=== PATIENT | male | born 1970 | race Caucasian/White ===

== ENCOUNTER 2020-04-23 09:45 | Outpatient (RCR) | payer OTHER, SELFPAY ==
[2020-02-01 14:11] VITALS: BP_SYST 90
--- NOTE | 2020-02-01 15:11 | PTOPEVAL ---
PHYSICAL THERAPY EVALUATION AND PLAN OF CARE 02-01-2020 The PT evaluation was completed for the diagnosis of L shoulder pain. His plan of treatment is 1-2x/week for 5 weeks. He requested 1-2x/week due to transportation issues and other appointments. Thank you for referring Alexander Elizabeth to [facility]. Please review, sign, date and return this plan of care [facility]. I agree with and certify that the following plan of care is medically necessary. Referring Physician Date Attending Provider: Dr. Yen *PT Outpatient Evaluation Start: 02/01/20 14:10 Freq: Status: Active Protocol: Document 02/01/20 14:11 SEVERIANO (Rec: 02/01/20 15:07 SEVERIANO [id number]) Therapy Assessment Status Assessment Status Assessment Status Evaluation Outpatient Past Medical History Past Medical History Source of Past Medical History Patient Neurological History Hx Neurological Disorders No Significant History Cardiovascular History Hx Cardiac Disorders No Significant History Respiratory History Hx Respiratory Disorders No Significant History Gastrointestinal History Hx Gastroesophageal Reflux Disease Yes Genitourinary History Hx Genitourinary Disorders No Significant History Musculoskeletal History Hx Back Pain Yes: chronic neck and low back pain Hx Other Musculoskeletal Disorders Yes: rheumatology-shoulders, elbows,wrists,low back,neck, hips Hematological History Hx Hematological Disorders No Significant History Endocrine History Hx Endocrine Disorders No Significant History HEENT History Hx HEENT Disorders No Significant History Evaluation Information Problem Diagnosis myalgia, pain shoulder and back Onset Aug 2019 Additional Evaluation Detail order states: JONNY positive, OA , vit D deficiency, CCP antibody positive; pt at this time, most pain in L shoulder; Subjective Information gradual increase in pain; Query Text:As Reported By Patient/ have had chronic pain in Family shoulders; saw pain management dr yesterday for L shoulder pain follow up next week- ? injections; also reports pain ineck, R shoulder, back and hips; fingers cold easily and drop things due to fingers banged up so much from work Diagnostic Tests X-Rays For This Problem Yes: pt reports torn ligaments of shoulders Previous Treatments Prev
--- NOTE | 2020-03-03 10:47 | PTOPEVAL ---
PHYSICAL THERAPY RE- EVALUATION AND UPDATED PLAN OF CARE 03-03-2020 Sudarshan has received 7 PT sessions, from January 31 to today, for the diagnosis of L shoulder pain. Compared to the initial evaluation: Pain rating is about the same; elbow pain is less; Reported sleeping tolerance has improved; continues to have pain with putting on his shirt and home activities are about the same level of pain; Self assessment score has improved by 27%; Active ROM of L shoulder-- all ranges have increased; IR continues to be the most pain for him. He has been issued a home exercise program and is receiving short term pain relief with the heat and electrical stim. PT is to continue 2x/week for 3 weeks. Thank you for referring Alexander Elizabeth to [facility]. Please review, sign, date and return this plan of care [facility]. I agree with and certify that the following plan of care is medically necessary. Referring Physician Date Attending Provider: Dr. Yen *PT Outpatient Re-Evaluation Document 03/03/20 10:09 SEVERIANO (Rec: 03/03/20 10:45 SEVERIANO [id number]) Subjective Information Sudarshan reports: pain has not Query Text:As Reported By Patient/ changed, but does have more Family motion in L shoulder; heat and electrical stim help pain; Quick DASH self assessment score: 43% limitation. Pain Assessment Timing of Pain Assessment Timing of Pain Assessment Assessment Pain Scale Pain Scale Used Numeric (1 - 10) Self Report Pain Assessment Left Shoulder(s) Reported Pain Level 6 Pain Frequency Chronic Other Pain Description mid bicep most time and into triceps; anterior shoulder Lowest Pain Intensity 6 Greatest Pain Intensity 9 Pain Aggravating Factors None Other Pain Aggravating Factors sleeping tolerance 3-4 hr; pain putting shirt on; home and self care tasks Pain Relief Interventions Used By Inactivity/Rest,Medication Patient Other Alleviating Interventions take prescription pain meds- not really make difference; Additional Pain Comments also reports neck pain, intermittent;L elbow pain intermittent & is less Pain Score Pain Score 6: Self Report Additional Pain Score Comments at end of session, electrical stim and heat over L shoulder in sitting; Upper Extremity Range of Motion General Upper Extremity Range of Motion Gross Upper Extremity Range of Motion stretch L shoulder flexion and Comments scaption on pully x 10 reps each; standing L shoulder: active flexion 130' x 10 rep
--- NOTE | 2020-03-20 09:06 | PTOPEVAL ---
PHYSICAL THERAPY RE-EVALUATION AND UPDATED PLAN OF CARE 03-20-2020 Sudarshan has received 13 PT sessions, from January 31 to today, for the diagnosis of L shoulder pain. Compared to the last reevaluation: pain rating about the same; self assessment functional activity score is worse; sleeping tolerance is about the same; he reports has more ROM and able to put his shirt on easier; Active and passive L shoulder flexion, abduction, ER and IR ranges have improved ; He continues to have pain in neck, shoulder and scapular regions. Thank you for referring Sudarshan to [facility].? He is scheduled to continue therapy? 2 x/week for 5 weeks. Please review, sign, date and return this plan of care [facility]. I agree with and certify that the following plan of care is medically necessary. Referring Physician Date Admitting Provider: Attending Provider: PHYSICIAN NOT ON STAFF Referring Provider: *PT Outpatient Evaluation Start: 02/01/20 14:10 Freq: Status: Active Protocol: Document 03/20/20 08:11 SEVERIANO (Rec: 03/20/20 09:06 SEVERIANO [id number]) Therapy Assessment Status Assessment Status Assessment Status Re-evaluation Outpatient Past Medical History Past Medical History Source of Past Medical History Patient Neurological History Hx Neurological Disorders No Significant History Cardiovascular History Hx Cardiac Disorders No Significant History Respiratory History Hx Respiratory Disorders No Significant History Gastrointestinal History Hx Gastroesophageal Reflux Disease Yes Genitourinary History Hx Genitourinary Disorders No Significant History Musculoskeletal History Hx Back Pain Yes: chronic neck and low back pain Hx Other Musculoskeletal Disorders Yes: rheumatology-shoulders, elbows,wrists,low back,neck, hips Hematological History Hx Hematological Disorders No Significant History Endocrine History Hx Endocrine Disorders No Significant History HEENT History Hx HEENT Disorders No Significant History Evaluation Information Problem Subjective Information Sudarshan reports: feel shoulder a Query Text:As Reported By Patient/ little more, but not full Family motion; still have pain; most
--- NOTE | 2020-04-08 11:41 | PCPTNOTE ---
Patient did not show up for scheduled appointment this date. Called pt . Pt stated every time I'm trying to take a nap someone calls and wakes me up . Pt was not aware he had an appointment today. Pt does know of his appointment on the , reminded him it is at 9:30.
--- NOTE | 2020-04-21 11:08 | PTOPEVAL ---
PHYSICAL THERAPY REEVALUATION AND DISCHARGE OF L shoulder and EVALUATION of low back pain 04-21-2020 Sudarshan has received 21 PT sessions for his L shoulder. Compared to the last reevaluation of his shoulder: pain rating is the same at the low rating and decreased by 1 at the worst rating; self assessment with the Quick DASH is 2% worse; reported sleeping tolerance is increased by 30 minutes; continues to have problems putting his shirt on and had slight increase/ 5' with active L shoulder flexion, abduction and IR ranges. He is to continue with his shoulder exercises. The evaluation for his back was performed today and the plan of care reflects back treatment, 2x/week for 4 weeks. Thank you for referring Alexander Elizabeth to [facility].? Please review, sign, date and return this plan of care [facility]. I agree with and certify that the following plan of care is medically necessary. Referring Physician Date Attending Provider: Dr. Yen *PT Outpatient Evaluation of back and Discharge of shoulder treatment Document 04/21/20 09:00 SEVERIANO (Rec: 04/21/20 09:58 SEVERIANO [id number]) Additional Evaluation Detail The PT order on 01-15-2020 has eval and treat for back and shoulder pain; Subjective Information Sudarshan reports: shoulder still Query Text:As Reported By Patient/ painful and tight; sleeping Family about 3-4 hours at time, then wake up due to shoulder pain, issues falling asleep; pain when putting a shirt on; frustrated about his shoulder continuing to hurt and wants an MRI; does not see dr until end of May; continues to have neck and back pain; He agrees to continue with home exercises for his shoulder and wants to start treatment on his back. He has not had PT treatment on his back, has had previous Xray of his back but not had MRI. Quick Dash for L shoulder score of 59%; Oswestry back score 42% limitations in activity level; Pain Assessment Timing of Pain Assessment Timing of Pain Assessment Assessment Pain Scale Pain Scale Used Numeric (1 - 10) Self Report Pain Assessment Left Shoulder(s) Reported Pain Level 7 Pain Description Sharp Radicular Pain Location neck continues to be stiff and painful; Pain Frequency Chronic Other Pain Description piercing pain; bicep, entire GH joint and upper traps;
--- NOTE | 2020-04-25 13:40 | PCPTNOTE ---
This treatment is being continued on visit number [id number]. Please see documentation on both accounts to view progress. Completed interventions, outcomes, and problems have been marked as Inactive to facilitate the copying of the Care plan routine for recurring accounts.
== END 2020-04-25 11:27 | disposition home or self-care (01) ==
LOC: ANHPT 09:45
PROVIDERS: PCP Physician Assistant
DX: M19.90 Unspecified osteoarthritis, unspecified site (principal); M25.50 Pain in unspecified joint; E55.9 Vitamin D deficiency, unspecified; R79.89 Other specified abnormal findings of blood chemistry; R76.8 Other specified abnormal immunological findings in serum
CPT/HCPCS: 97014; 97110; 97140; 97161; G0283

== ENCOUNTER 2020-05-19 10:00 | Outpatient (RCR) | payer OTHER, SELFPAY ==
[2020-04-25 11:27] VITALS: BP_SYST 90
--- NOTE | 2020-05-19 10:49 | PTOPEVAL ---
PHYSICAL THERAPY RE-EVALUATION and HOLD PT treatment 05-19-2020 See clinical summary below for comparison since last reevaluation. Sudarshan has made slight improvement with his low back pain, but continues to have pain and spasms. He has been instructed on home exercises and self management techniques. He continues to have L shoulder and neck pain. PLAN: HOLD PT until he has a follow up appointment with you. IF PT is to continue, please give him a new script. Thank you for referring Alexander Elizabeth to [facility].? Please review, sign, date and return this plan of care [facility]. I agree with and certify that the following plan of care is medically necessary. Referring Physician Date Attending Provider: Dr. David *PT Outpatient Re- Evaluation Document 05/19/20 10:04 SEVERIANO (Rec: 05/19/20 10:49 SEVERIANO [id number]) Subjective Information Sudarshan reports: back is about Query Text:As Reported By Patient/ the same; have most pain Family right now in the L shoulder; R shoulder also hurts, but L is worst; sleeping at best is 4-5 hours; problems falling asleep also; continue to walk his dog 6 miles a day; feels he should have an MRI of his shoulder and back to see what is going on; also has pain in his neck, with popping and grinding noises when he moves neck; Oswesty Back pain questionnaire score of 36%; has dr geronimo at end of May-- phone visit; electrical stim and heat help his back pain for about 1-2 hours; discussed home TENS unit and how to place pads; Pain Assessment Timing of Pain Assessment Timing of Pain Assessment Assessment Pain Scale Pain Scale Used Numeric (1 - 10) Self Report Pain Assessment Bilateral Back Reported Pain Level 4 Radicular Pain Location R and L low back; sometimes into R butt and upper thigh Pain Frequency Chronic Lowest Pain Intensity 4 Greatest Pain Intensity 7 Pain Aggravating Factors Exercise/Activity Other Pain Aggravating Factors bend forward- sore and achey Pain Score Pain Score 4: Self Report Interventions Used Interventions Used By Clinicians Exercise Pain Relief Interventions Used By Inactivity/Rest,Position Patient Change Other Alleviating Interventions just put up with the pain ' not u
--- NOTE | 2020-07-09 14:16 | PCPTNOTE ---
PHYSICAL THERAPY DISCHARGE 07-09-2020 Attending Provider: Dr. David Patient:Alexander Elizabeth Date of :1970 Sudarshan has not received additional PT orders since the Reevaluation on 05-19-2020; therefore, he will be discharged from PT at this time. Refer to the reevaluation for his status at the last session. Thank you for referring Mr. Elizabeth to [facility]. Please review, sign, date and return this discharge summary [facility]ST[facility]. I have been updated about the patient's current status and I agree with discharge from the above service at this time. Referring Physician Date
== END 2020-07-10 15:31 | disposition home or self-care (01) ==
LOC: ANHPT 10:00
PROVIDERS: PCP Physician Assistant
DX: M19.90 Unspecified osteoarthritis, unspecified site (principal); M25.50 Pain in unspecified joint; E55.9 Vitamin D deficiency, unspecified; R79.89 Other specified abnormal findings of blood chemistry; R76.8 Other specified abnormal immunological findings in serum
CPT/HCPCS: 97012; 97014; 97110; 97140; G0283